=== PATIENT | male | born 1985 | race Caucasian/White ===

== ENCOUNTER → 2018-03-27 | Outpatient (CLI) | payer OTHER ==
[2018-03-28 04:25] LABS: Albumin 4.7 g/dL (3.80-4.90); Albumin/Globulin Ratio 1.81 (1.20-2.10); Anion Gap 14.3 mmol/L (4.00-12.00); Calcium 9.3 mg/dL (8.7-10.3); Carbon Dioxide 18.7 mmol/L (21.6-31.8); Globulin 2.6 g/dL (2.1-3.7); Potassium 4.1 mmol/L (3.5-5.5); Total Bilirubin 0.6 mg/dL (0.2-1.2); Total Protein 7.3 g/dL (6.2-8.2)
== END | disposition home or self-care (01) ==
LOC: LABWHC1 14:24
PROVIDERS: ATTEND Family Medicine
DX: F19.10 Other psychoactive substance abuse, uncomplicated (principal)
CPT/HCPCS: 36415; 80053

== ENCOUNTER 2019-05-02 19:00 | Emergency (ER) | payer OTHER ==
[2019-05-02 19:17] VITALS: BP 142/74; PULSE 96; RESP 20; TEMP 99.4
[2019-05-02] MEDS ORDERED: ACET/COD 300 MG/30 MG STARTER PACK 6 TAB BTL PO STA (19:33)
--- NOTE | 2019-05-02 20:05 | XR ---
EXAMINATION TYPE: XR shoulder complete RT DATE OF EXAM: 05/02/2019 COMPARISON: NONE HISTORY: Pain TECHNIQUE: Shoulder examined in 3 views FINDINGS: The humeral head articulates with the glenoid. The acromio-clavicular junction is normal. No acute fractures or dislocations are evident. A follow up study can be performed 7-10 days from acute trauma for continued pain. IMPRESSION: 1. Normal three-view right Shoulder
--- NOTE | 2019-05-02 20:27 | ED ---
Fall HPI - General Chief Complaint: Fall Stated Complaint: [facility]-Fall of ladder Time Seen by Provider: 05/02/19 19:20 Source: patient Mode of arrival: ambulatory - History of Present Illness Initial Comments: 33-year-old male presenting today for chief complaint of right shoulder pain. Patient states that he fell 2 days ago from 3 rungs up on a ladder he states his feet got tangled and he fell onto his right shoulder. Patient denies any injury to the lack denies loss of consciousness. Patient states he is able to range at the right shoulder has been working, there is pain in the front and back. Patient denies any difficulty breathing shortness of breath or pain with deep inspiration denies any rib pain patient denies any pain in the wrists and elbows patient denies any weakness of the upper extremity. The pain persisted today he thought it was best to come for evaluation to ensure that there is no fracture. Patient also noted that he scraped the anterior right blue he has been applying Neosporin however there is no redness around the scab and he is unsure if this is developing infection remaining review of systems negative - Related Data Previous Rx's Medication Instructions Recorded Cephalexin [Keflex] 500 mg PO Q6HR 7 Days #28 cap 05/02/19 Allergies Allergy/AdvReac Type Severity Reaction Status Date / Time No Known Allergies Allergy Verified 05/02/19 19:17 Review of Systems ROS Statement: Those systems with pertinent positive or pertinent negative responses have been documented in the HPI. ROS Other: All systems not noted in ROS Statement are negative. Past Medical History Past Medical History: No Reported History History of Any Multi-Drug Resistant Organisms: None Reported Past Surgical History: No Surgical Hx Reported Past Psychological History: Anxiety, PTSD Smoking Status: Current every day smoker Past Alcohol Use History: None Reported Past Drug Use History: Marijuana General Exam - General Exam Comments Initial Comments: General: The patient is awake and alert, in no distress, and does not appear acutely ill. Eye: Pupils are equal, round and reactive to light, extra-ocular movements are intact. No nystagmus. There is normal conjunctiva bilaterally. No signs of icterus. Ears, nose, mouth and throat: There are moist mucous membranes and no oral lesions. No raccoon or snyder sign Neck: The neck is supple, there is no tenderness or JVD. Cardiovascular: There is a regular rate and rhythm. No murmur, rub or gallop is appreciated. Respiratory: Lungs are clear to auscultation, respirations are non-labored, breath sounds are equal. No wheezes, stridor, rales, or rhonchi. Gastrointestinal: [Soft, non-distended, non-tender abdomen without masses or organomegaly noted. There is no rebound or guarding present. No CVA tenderness. Bowel sounds are unremarkable.] Musculoskeletal: Normal inspection of the shoulders bilaterally. Patient is tenderness to patient over theAC joint of right shoulder and scapula. No bruising or skin changes noted. no pain at elbow, wrist, cervical spine midline. Abrasion with surrounding erythema on the right anterior lower leg Normal ROM shoulders elbows wrists hips and knees ankles bilaterally, no tenderness assessment from tenderness with range of motion at the right shoulder. Strength 5/5. Sensation intact. radial pulses equal bilaterally 2+. Patient is able to make the okay fingers crossed and Xopenex was a small tension, Neurological: A&O x 3. CN II-XII intact grossly, There are no obvious motor or sensory deficits. Coordination appears grossly intact. Speech is normal. Skin: Skin is warm and dry and no rashes or lesions are noted. Psychiatric: Cooperative, appropriate mood & affect, normal judgment. Limitations: no limitations Course Vital Signs 05/02/19 19:13 Temperature 99.4 F Pulse Rate 96 Respiratory 20 Rate Blood Pressure 142/74 O2 Sat by Pulse 97 Oximetry Medical Decision Making - Medical Decision Making Imaging studies negative for acute fractures. Patient does have pain over the AC joint. Neurovascularly intact. Placed in sling for comfort. No head injury noted on history taking patient's right anterior blue has some mild erythema this could be developing cellulitis or reaction from the Neosporin at this time we'll treat for cellulitis to prevent any further infection--if this were to be the cause. No abscess noted. Patient is Dr. felipe and appears well but her primary discussed at length patient verbalizes understanding and was discharged appearing well with orthopedic follow-up. Case discussed with Dr. Horvath Disposition Clinical Impression: Fall, Right shoulder pain, Abrasion, right lower leg, initial encounter Disposition: HOME SELF-CARE Condition: Good Instructions (If sedation given, give patient instructions): Shoulder Pain (ED) Additional Instructions: Please use medication as discussed. Please follow-up with family doctor in the next 2 days, if symptoms have not improved please follow up with orthopedics. Please return to emergency room if the symptoms increase or worsen or for any other concerns. Prescriptions: Cephalexin [Keflex] 500 mg PO Q6HR 7 Days #28 cap Is patient prescribed a controlled substance at d/c from ED?: No Referrals: José Luis Anglin MD [Primary Care Provider] - 1-2 days Jesus Duque DO [Medical Doctor] - 1-2 days Time of Disposition: 20:51
--- NOTE | 2019-05-02 20:49 | XR ---
EXAMINATION TYPE: XR scapula RT DATE OF EXAM: 05/02/2019 COMPARISON: None HISTORY: Scapular pain, fall TECHNIQUE: 2 view right scapula FINDINGS: Scapula appears intact. No acute fractures are evident. Adjacent ribs appear unremarkable. Humeral head articulates with the glenoid. Acromioclavicular junction is normal. IMPRESSION: 1. Normal two-view scapula. 2. If additional evaluation is required, CT would be recommended.
== END 2019-05-02 21:07 | disposition home or self-care (01) ==
LOC: EC 19:00
DX: S80.811A Abrasion, right lower leg, initial encounter (principal); M25.511 Pain in right shoulder; F17.200 Nicotine dependence, unspecified, uncomplicated; W11.XXXA Fall on and from ladder, initial encounter; Y92.009 Unspecified place in unspecified non-institutional (private) residence as the place of occurrence of the external cause; Y99.0 Civilian activity done for income or pay
CPT/HCPCS: 99283